=== PATIENT | male | born 1985 | race Caucasian/White ===

== ENCOUNTER 2023-10-03 12:28 | Emergency (ER) | payer OTHER ==
[~2023-10-03] VITALS: Ht 160 cm; Wt 116.1 kg
[2023-10-03 12:38] VITALS: BP_SYST 186; PULSE 78; RESP 18; TEMP 98.3; O2SAT 97
[2023-10-03 13:02] LABS: BASOPHILS % (AUTO) 0.2 % (0.0-2.0); EOSINOPHILS # (AUTO) 0.1 K/uL (0.0-0.4); EOSINOPHILS % (AUTO) 1.4 % (0.0-4.0); HEMATOCRIT 46.8 % (36-54); HEMOGLOBIN 15.5 g/dL (14.0-18.0); LYMPHOCYTES # (AUTO) 1.1 K/uL (1.0-5.5); LYMPHOCYTES % (AUTO) 21.6 % (20.5-51.5); MEAN CORPUSCULAR HEMOGLOBIN 29 pg (27-31); MEAN CORPUSCULAR HGB CONC 33 % (32-36); MEAN CORPUSCULAR VOLUME 87 fL (79.0-98.0); MONOCYTES # (AUTO) 0.5 K/uL (0.0-1.0); MONOCYTES % (AUTO) 10.2 % (1.7-9.3); NEUTROPHILS # (AUTO) 3.5 K/uL (1.8-7.7); NEUTROPHILS % (AUTO) 66.6 % (40.0-70.0); PLATELET COUNT (AUTO) 217 K/uL (130-430); RED CELL DISTRIBUTION WIDTH 13.9 % (9.0-15.0); WHITE BLOOD COUNT (AUTO) 5.3 K/uL (4.8-10.8)
[2023-10-03 13:11] LABS: CREATININE 0.98 mg/dL (0.55-1.30); POTASSIUM 3.9 mmol/L (3.5-5.1)
[2023-10-03 13:16] LABS: ALBUMIN 3.7 g/dL (3.4-4.8); TOTAL BILIRUBIN 0.4 mg/dL (0.0-1.0); TOTAL PROTEIN, SERUM 7.6 g/dL (6.4-8.3)
[2023-10-03] MEDS ORDERED: PRED20TA PO (13:36)
[2023-10-03] MEDS ORDERED: AMOX-423 PO (13:36)
== END 2023-10-03 13:53 | disposition home or self-care (01) ==
LOC: SED 12:28
DX: B34.9 Viral infection, unspecified (principal); R21 Rash and other nonspecific skin eruption; R50.9 Fever, unspecified; Z79.899 Other long term (current) drug therapy
CPT/HCPCS: 36415; 80053; 85025; 86403; 87081; 99283

== ENCOUNTER 2024-01-11 14:17 | Emergency (ER) | payer OTHER ==
[~2024-01-11] VITALS: Ht 172.7 cm; Wt 113.4 kg
[2024-01-11 14:17] VITALS: BP_SYST 119; PULSE 87; RESP 17; TEMP 98; O2SAT 98
[~2024-01-11 14:17] MED LIST: AMOX-423 PO; PRED20TA PO
[2024-01-11 15:48] LABS: BASOPHILS % (AUTO) 0.5 % (0.0-2.0); EOSINOPHILS % (AUTO) 0.3 % (0.0-4.0); HEMATOCRIT 44.5 % (36-54); HEMOGLOBIN 15.4 g/dL (14.0-18.0); LYMPHOCYTES # (AUTO) 1.4 K/uL (1.0-5.5); LYMPHOCYTES % (AUTO) 18.3 % (20.5-51.5); MEAN CORPUSCULAR HEMOGLOBIN 30 pg (27-31); MEAN CORPUSCULAR HGB CONC 35 % (32-36); MEAN CORPUSCULAR VOLUME 88 fL (79.0-98.0); MONOCYTES # (AUTO) 0.6 K/uL (0.0-1.0); MONOCYTES % (AUTO) 7.6 % (1.7-9.3); NEUTROPHILS # (AUTO) 5.8 K/uL (1.8-7.7); NEUTROPHILS % (AUTO) 73.3 % (40.0-70.0); PLATELET COUNT (AUTO) 266 K/uL (130-430); RED BLOOD CELL COUNT(AUTO) 5.08 MIL/uL (4.2-6.2); RED CELL DISTRIBUTION WIDTH 13.9 % (9.0-15.0); WHITE BLOOD COUNT (AUTO) 7.9 K/uL (4.8-10.8)
[2024-01-11 16:05] LABS: ANION GAP 5 (5-15); CALCIUM 8.5 mg/dL (8.4-11.0); CARBON DIOXIDE 31 mmol/L (23-29); CHLORIDE 107 mmol/L (98-107); CREATININE 0.95 mg/dL (0.55-1.30); GFR AFRICAN AMERICAN 115 mL/min (>90); GFR NON AFRICAN-AMERICAN 95 mL/min (>90); GLUCOSE 99 mg/dL (74-106); POTASSIUM 4.3 mmol/L (3.5-5.1); SODIUM SERUM 143 mmol/L (136-145); UREA NITROGEN, BLOOD 12 mg/dL (8-21)
[2024-01-11] MEDS ORDERED: IBUP-1971 PO (16:50)
[2024-01-11] MEDS ORDERED: PSEU30TA36 PO (16:50)
[2024-01-11 17:18] VITALS: BP_SYST 121; PULSE 75
== END 2024-01-11 17:22 | disposition home or self-care (01) ==
LOC: SED 14:17
DX: R42 Dizziness and giddiness (principal); J32.9 Chronic sinusitis, unspecified; R07.89 Other chest pain; R51.9 Headache, unspecified; Z79.899 Other long term (current) drug therapy
CPT/HCPCS: 36415; 70450-TC; 71045; 76376; 80048; 84484; 85025; 93005; 99285

== ENCOUNTER 2024-03-11 13:08 | Emergency (ER) | payer OTHER ==
[~2024-03-11] VITALS: Ht 172.7 cm; Wt 113.4 kg
[~2024-03-11 13:08] MED LIST changes: +IBUP-1971 PO; +PSEU30TA36 PO
[2024-03-11 13:49] VITALS: BP_SYST 99; PULSE 81; RESP 18; TEMP 96.8; O2SAT 97
[2024-03-11] MEDS: KETOROLAC TROMETHAMINE 60 MG/2 ML VIAL IM ONE (14:47)
[2024-03-11 15:24] LABS: INFLUENZA TYPE A Negative (NEGATIVE); INFLUENZA TYPE B NEGATIVE (NEGATIVE)
[2024-03-11] MEDS ORDERED: FLUT16SP16 NS (16:05)
[2024-03-11] MEDS ORDERED: IBUP-1971 PO (16:05)
[2024-03-11] MEDS ORDERED: AMOX500C2 PO (16:05)
[2024-03-11 16:11] VITALS: BP_SYST 126; PULSE 84; RESP 19; TEMP 98.2; O2SAT 96
== END 2024-03-11 16:12 | disposition home or self-care (01) ==
LOC: SED 13:08
DX: J32.0 Chronic maxillary sinusitis (principal); Z20.822 Contact with and (suspected) exposure to COVID-19
CPT/HCPCS: 99285; 70450; 87426; 36415; 96372; 87804 ×2; J1885

== ENCOUNTER 2024-06-15 15:27 | Emergency (ER) | payer OTHER ==
[~2024-06-15] VITALS: Ht 172.7 cm; Wt 117.9 kg
[~2024-06-15 15:27] MED LIST changes: +AMOX500C2 PO; +FLUT16SP16 NS
[2024-06-15 15:36] VITALS: BP_SYST 137; PULSE 74; RESP 18; TEMP 98.3; O2SAT 95
[2024-06-15] MEDS: KETOROLAC TROMETHAMINE 60 MG/2 ML VIAL IM ONE (16:31)
[2024-06-15] MEDS ORDERED: IBUP-1969 PO (17:15)
[2024-06-15 17:18] VITALS: BP_SYST 137; PULSE 74; RESP 18; TEMP 98.3; O2SAT 95
== END 2024-06-15 17:21 | disposition home or self-care (01) ==
LOC: SED 15:27
DX: R51.9 Headache, unspecified (principal); J01.00 Acute maxillary sinusitis, unspecified; Z79.899 Other long term (current) drug therapy; Z79.2 Long term (current) use of antibiotics
CPT/HCPCS: 99285; 70450; 96372; J1885